=== PATIENT | male | born 1990 | race Caucasian/White ===

== ENCOUNTER 2020-03-30 09:10 | Emergency (ER) | payer OTHER ==
[~2020-03-30] VITALS: Ht 188 cm; Wt 85.3 kg
--- NOTE | 2020-03-30 09:25 | PHYS DOC ---
General Adult EDM: Chief Complaint: FINGER INJURY HPI: HPI: 30 yo M who denies pmh presents to the ed with c/o blunt injury to his right (dominant hand) third digit, reports finger got smashed between metal and a tire. When removing his hand, part of the nail ripped off. States tetanus was "way more than 5" years ago. 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 No prior injury to this digit. Review of Systems: Review of Systems: Constitutional: Denies fever or chills Eyes: Denies change in visual acuity HENT: Denies nasal congestion or sore throat Respiratory: Denies cough or shortness of breath Cardiovascular: Denies chest pain or edema or hemoptysis GI: Denies abdominal pain, nausea, vomiting, : Denies dysuria Musculoskeletal: Denies back pain Integument: Denies rash Neurologic: Denies headache, focal weakness or sensory changes or neck stiffness Endocrine: Denies polyuria or polydipsia Heart Score: Risk Factors: Risk Factors: DM, Current or recent (<one month) smoker, HTN, HLP, family history of CAD, obesity. Risk Scores: Score 0 - 3: 2.5% MACE over next 6 weeks - Discharge Home Score 4 - 6: 20.3% MACE over next 6 weeks - Admit for Clinical Observation Score 7 - 10: 72.7% MACE over next 6 weeks - Early Invasive Strategies Physical Exam: PE: Constitutional: Well developed, well nourished, no acute distress, non-toxic appearance. [] HENT: Normocephalic, atraumatic, Eyes: EOMI, conjunctiva normal, Neck: Normal range of motion, supple, n Skin: Warm, dry, no erythema, no rash. [] Back: No tenderness, no CVA tenderness. [] Extremities: +partial nail avulsion -50% distal dip of 3rd nail is removed (horizontal cut of distal nail), proximal 50% nail intact at nail bed, no cyanosis, no clubbing, ROM intact at mcp/pip/dip joints, no pain at wrist/elbow, equal bl radial pulses Neurologic: Alert and oriented X 3, normal motor function, normal sensory function, no focal deficits noted. [] Psychologic: Affect normal, judgement normal, mood normal. [] EKG: EKG: [] Radiology/Procedures: Radiology/Procedures: IMAGING REPORT Signed PATIENT: SARAH GROVE ACCOUNT: [id number] : 1990 LOCATION: ER AGE: 30 SEX: M EXAM STATUS: REG ER ORD. PHYSICIAN: JOSE ROBERTO DO REASON: third digit PROCEDURE: FINGER(S) RIGHT EXAM: PA, oblique and lateral views of the right middle finger DATE: 03/30/2020 9:24 AM INDICATION: Reason: third digit injury, pain COMPARISON: No Prior FINDINGS: No evidence of acute fracture or dislocation. Old fracture deformity fifth metacarpal with mild foreshortening. Soft tissue swelling about the right middle finger. IMPRESSION: Soft tissue swelling without acute fracture or dislocation. If there is persistent clinical concern for fracture, follow-up radiographs in 10-14 days is recommended. Electronically signed by: Aubrey Omalley MD (03/30/2020 10:20 AM) [id number] DICTATED AND SIGNED BY: AUBREY OMALLEY MD DATE: 03/30/20 1020 CC: PCP,NO; JOSE ROBERTO DO ~ Course & Med Decision Making: Course & Med Decision Making Pertinent Labs and Imaging studies reviewed. (See chart for details) Concern for partial nail avulsion of distal aspect of third finger, proximal 50% of nail still intact with no disruption of the nailbed. Digital block was performed with copious irrigation. No nailbed lacerations visualized. Xr with no obvious fx. Wound dressed with petroleum gauze and sterile dressings. Wound care instructions given to patient-should have wound reevaluation in 3 to 5 days. Strict ED return precautions were given for redness, swelling or fever. Encouraged urgent outpatient follow-up with PMD and hand surgery. Life- threatening processes were considered but are low suspicion at this time, given history and physical exam. Pt was educated on all prescription medications and adverse effects. All patient's questions were answered and pt was stable at time of discharge. Differential includes fracture, dislocation, laceration, osteomyelitis, compartment syndrome, neurovascular injury or deficit, infection (abscess, cellulitis, septic arthritis), tendon or ligament injury. I spoken with the patient and her caregivers. I explained the patient's condition, diagnoses and treatment plan based on the information available to me at this time. I have answered the patient and her caregiver's questions and addressed any concerns. The patient and her caregivers have a good understanding of patient's diagnosis, condition and treatment plan as can be expected at this point. Vital signs have been stable. Patient's condition is stable and appropriate for discharge from the emergency department. Patient will pursue further outpatient evaluation with primary care physician or other designated or consulting physician as outlined in the discharge instructions. The patient and/or caregivers are agreeable to this plan of care and follow-up instructions have been explained in detail. The patient and/or caregivers have received these instructions in written form and have expressed an understanding of the discharge instructions. The patient and/or caregivers are aware that any significant change of condition or worsening of symptoms should prompt immediate return to this or the closest emergency department or call to [id number] Disclaimer: Badge Disclaimer: This electronic medical record was generated, in whole or in part, using a voice recognition dictation system. Departure Departure: Impression: Primary Impression: Nail avulsion, finger Additional Impression: Need for tetanus, diphtheria, and acellular pertussis (Tdap) vaccine Disposition: 01 HOME/RESIDENCE PRIOR TO ADM Condition: STABLE Referrals: PCP,NO (PCP[facility] [place] [address] Patient Instructions: Nail Avulsion Injury, Wound Care, [facility] Additional Instructions: [facility] Appointments may be made with Josh Robbins MD, Caesar Molina MD, Davis Langford MD or Jordy Johnson MD, by calling [phone] EMERGENCY DEPARTMENT GENERAL DISCHARGE INSTRUCTIONS Thank you for coming to [facility] Emergency Department (ED) today and trusting us with you care. We trust that you had a positivie experience in our Emergency Department. If you wish to speak to the department management, you may call the sirector at [phone]. YOUR FOLLOW UP INSTRUCTIONS ARE FOLLOWS: 1. Do you have a private Doctor? If you do not have a private doctir, please ask for a resource list of physicians or clinics that may be able to assist you with follow up care. 2. The Emergency Physicain has interpreted your x-rays. The X-Ray specialist will also review them. If there is a change in the findingd, you will be notified in 48 hours when at all possible. 3. A lab test or culture has been done, your results will be reviewed and you will be notified if you need a change in treatment. ADDITIONAL INSTRUCTIONS AND INFORMATION: 1. Your care today has been supervised by a physician who is specially trained in emergency care. Many problems require more than one evaluation for a complete diagnosis and treatment. We recommend that you schedule your follow up appointment as recommended to ensure complete treatment of you illness or injury. If you are unable to obtain follow up care and continue to have a problem, or if your consition worsens, we recommend that you return to the ED. 2. We are not able to safelymdetermine your condition over the phone nor are we able to give sound medical advice over the phone. For these safety reasons, if you call for medical advice we will ask you to come to the ED for further evaluation. 3. If you have any questions regarding these discharge instructions please call the ED at [phone]. SAFETY INFORMATION: In the interest of safety, wellness, and injury prevention; we encourage you to wear your sealbelt, if you smoke; quite smoking, and we encourage family to use a protective helmet for bicycling and other sporting events that present an increased risk for head injusry. IF YOUR SYMPTOMS WORSEN OR NEW SYMPTOMS DEVELOP, OR YOU HAVE CONCERNS ABOUT YOUR CONDITION; OR IF YOUR CONDITION WORSENS WHILE YOU ARE WAITING FOR YOUR FOLLOW UP APPOINTMENT; EITHER CONTACT YOUR PRIMARY CARE DOCTOR, THE PHYSICIAN WHOSE NAME AND NUMBER YOU WERE GIVEN, OR RETURN TO THE ED IMMEDIATELY. Justification of Admission: Justification of Admission: Justification of Admission Dx: N/A JOSE ROBERTO DO Mar 30, 2020 09:25
[2020-03-30] MEDS ORDERED: DIPH,PERTUSS(ACELL),TET VAC/PF 0.5 ML SYRINGE. VAX IM ONE (09:30)
[2020-03-30] MEDS ORDERED: NEOMY/BACITR/POLYMYXIN OINT PACKET. TP ONE (09:30)
[2020-03-30] MEDS ORDERED: LIDOCAINE 1% Multi-Dose 20 ML VIAL. INJ ONE (09:45)
[2020-03-30 10:20] VITALS: BP 113/76
--- NOTE | 2020-03-30 10:23 | RAD ---
EXAM: PA, oblique and lateral views of the right middle finger DATE: 03/30/2020 9:24 AM INDICATION: Reason: third digit injury, pain COMPARISON: No Prior FINDINGS: No evidence of acute fracture or dislocation. Old fracture deformity fifth metacarpal with mild foreshortening. Soft tissue swelling about the right middle finger. IMPRESSION: Soft tissue swelling without acute fracture or dislocation. If there is persistent clinical concern for fracture, follow-up radiographs in 10-14 days is recommended. Electronically signed by: Aubrey Sandhu MD (03/30/2020 10:20 AM) [id number]
== END 2020-03-30 10:25 | disposition home or self-care (01) ==
LOC: ER 09:10
DX: S61.302A Unspecified open wound of right middle finger with damage to nail, initial encounter (principal); Z23 Encounter for immunization; W23.0XXA Caught, crushed, jammed, or pinched between moving objects, initial encounter; Y93.89 Activity, other specified; Y92.89 Other specified places as the place of occurrence of the external cause; Y99.8 Other external cause status
CPT/HCPCS: 64450; 73140; 90471; 90715; 99284